=== PATIENT | male | born 1950 | race Caucasian/White ===

== ENCOUNTER → 2017-04-21 | Outpatient (CLI) | payer BC ==
[~2017-04-21] MED LIST: AMLO-110 PO; ATEN-173 PO; BENA1TAB53 PO; DOXY50CA26 PO; HYDR12.55 PO; MULT-618 PO
[2017-04-21 12:57] LABS: BASO % 0.6 %; BASO ABS # 0.03 K/uL (0-0.2); COMPLETE YES; EOS % 2.1 %; HEMATOCRIT 44.8 % (42-52); IG% 0.2 %; LYMPH % 29.4 %; MEAN CELL VOLUME 89.4 fL (80-100); MEAN CORPUSCULAR HEMOGLOBIN 31.9 pg (25-34); MEAN CORPUSCULAR HGB CONC 35.7 g/dl (32-36); MEAN PLATELET VOLUME 10.3 fL (7.4-10.4); MONO % 13.2 %; NEUT % 54.5 %; PLATELET COUNT 213 K/uL (130-400); RED BLOOD COUNT 5.01 M/uL (4.7-6.1); WHITE BLOOD COUNT 4.77 K/uL (4.8-10.8)
[2017-04-21 13:34] LABS: ALKALINE PHOSPHATASE 82 U/L (45-117); ALT/SGPT 60 U/L (12-78); BLOOD UREA NITROGEN 13 mg/dl (7-18); BUN/CREATININE RATIO 13.9 (10-20); CALCIUM 9.3 mg/dl (8.5-10.1); CARBON DIOXIDE 29 mmol/L (21-32); CHLORIDE 105 mmol/L (98-107); CHOLESTEROL 197 mg/dl (0-200); CHOLESTEROL/HDL RATIO 4.7; CREATININE 0.94 mg/dl (0.60-1.40); GLUCOSE 122 mg/dl (70-99); HDL CHOLESTEROL 42 mg/dl; LDL CHOLESTEROL CALCULATED 119 mg/dl; POTASSIUM 3.6 mmol/L (3.5-5.1); SODIUM 140 mmol/L (136-145); TRIGLYCERIDES 179 mg/dl (0-150); VERY LOW DENSITY LIPOPROT CALC 36 mg/dl
[2017-04-21 13:38] LABS: ALB/GLOB RATIO 1.1 (0.9-2); AST/SGOT 32 U/L (15-37); FERRITIN 142.2 ng/ml (8.0-388.0); PROSTATE SPECIFIC ANTIGEN 0.822 ng/ml (0.000-4.000); TOTAL IRON BINDING CAPACITY 333 mcg/dl (250-450)
== END | disposition home or self-care (01) ==
LOC: C.LABMFLN 08:46
PROVIDERS: ATTEND Family Medicine
DX: I10 Essential (primary) hypertension (principal); E78.5 Hyperlipidemia, unspecified; Z12.5 Encounter for screening for malignant neoplasm of prostate; E83.119 Hemochromatosis, unspecified

== ENCOUNTER 2019-12-16 08:25 | Inpatient (IN) ==
--- NOTE | 2019-11-15 15:02 | PAT Medication Instructions ---
Medication Instructions Date of Service November 15, 2019 Home Medications Medication Instructions Recorded aspirin 81 mg tablet,delayed 81 mg PO DAILY #90 tab 10/26/18 release atenolol 25 mg tablet 25 mg PO DAILY #90 tab 01/31/19 hydrochlorothiazide 12.5 mg capsule 12.5 mg PO DAILY #90 cap 03/03/19 amlodipine 10 mg tablet 10 mg PO DAILY #90 tab 05/02/19 doxycycline hyclate 50 mg capsule 50 mg PO DAILY #90 cap 05/24/19 diclofenac sodium 75 mg 75 mg PO BID #60 tab 06/15/19 tablet,delayed release benazepril 40 mg tablet 40 mg PO DAILY #90 tab 09/13/19 aspirin 81 mg tablet,delayed release 81 mg PO DAILY atenolol 25 mg tablet 25 mg PO DAILY multivitamin 1 tab PO DAILY hydrochlorothiazide 12.5 mg capsule 12.5 mg PO DAILY amlodipine 10 mg tablet 10 mg PO DAILY doxycycline hyclate 50 mg capsule 50 mg PO DAILY diclofenac sodium 75 mg tablet,delayed release 75 mg PO BID benazepril 40 mg tablet 40 mg PO DAILY ASK your surgeon for instructions diclofenac sodium 75 mg tablet,delayed release 75 mg PO BID DO NOT take the morning of surgery multivitamin 1 tab PO DAILY hydrochlorothiazide 12.5 mg capsule 12.5 mg PO DAILY benazepril 40 mg tablet 40 mg PO DAILY Take morning of surgery With a small sip of water, OTHERWISE NOTHING TO EAT OR DRINK AFTER MIDNIGHT: aspirin 81 mg tablet,delayed release 81 mg PO DAILY atenolol 25 mg tablet 25 mg PO DAILY amlodipine 10 mg tablet 10 mg PO DAILY doxycycline hyclate 50 mg capsule 50 mg PO DAILY Other Notes If you have any questions please call us at [phone] or [phone] or [phone] or [phone]
--- NOTE | 2019-11-16 13:23 | Anesthesiology Consultation ---
Date of Service November 16, 2019 Assessment & Plan (1) Encounter for pre-operative examination: Chart Review Chart Review: Acceptable Risk for Surgery (pending covid testing ) and Patient seen in Pre Admission Testing Due to thoracic aortic aneurysm- fluid bolus not ordered- will leave to anesthesia discretion DOS. Per PAT appt 11/16/19, pt resides in [facility]. Did travel to [facility] 11/13/19. Wears mask in public and practices social distancing. Educated patient to follow up with surgeon's office regarding Covid testing. Educated on importance of self quarantining, social distancing and wearing mask in public both for herself and household contacts. Teaching & Discussion Pre-Anesthesia Teaching/Discussion Notes: Instructed NPO after midnight before surgery,except medications with 15 cc of water. Medication instructions provided according to the PAT guidelines. History Surgery Operation Date: 12/16/19 09:15 Proposed Procedures p Left Anterior Total Hip Arthroplasty - Miguel Castillo DO Height/Weight Height: 5 ft 9 in Weight: 88.3 kg Allergies Allergy/AdvReac Type Severity Reaction Status Date / Time No Known Drug Allergies Allergy Unknown . Verified 11/14/19 08:07 Medications Home Medications Medication Instructions Recorded Confirmed Last Taken aspirin 81 mg tablet,delayed 81 mg PO DAILY #90 tab 10/26/18 11/14/19 Unknown release atenolol 25 mg tablet 25 mg PO DAILY #90 tab 01/31/19 11/14/19 Unknown multivitamin 1 tab PO DAILY 02/25/19 11/14/19 Unknown hydrochlorothiazide 12.5 mg capsule 12.5 mg PO DAILY #90 cap 03/03/19 11/14/19 Unknown amlodipine 10 mg tablet 10 mg PO DAILY #90 tab 05/02/19 11/14/19 Unknown doxycycline hyclate 50 mg capsule 50 mg PO DAILY #90 cap 05/24/19 11/14/19 Unknown diclofenac sodium 75 mg 75 mg PO BID #60 tab 06/15/19 11/14/19 Unknown tablet,delayed release benazepril 40 mg tablet 40 mg PO DAILY #90 tab 09/13/19 11/14/19 Unknown Past Medical History Medical History (Updated 11/17/19 @ 10:39 by Blessing Hutchinson PA-C) Aneurysm of thoracic aorta Follows with [facility] [place]. Dx'd ~2010. Per 11/09/18 CT note- ascending aorta at level of bifurcation of pulmonary artery at 41.7mm which is essentially without change dating back to 2010. Has f/u in 2020 Benign essential hypertension Gilbert's syndrome Pt unaware of this dx- denies any liver issues or hx of jaundice. Bilirubin elevated since at least 2017- stable Hemochromatosis Stable and controlled. No phlebotomies needed- donates blood routinely. Hyperlipidemia Osteoarthritis of hips, bilateral Rosacea Exercise / Class Metabolic Activity II 4-5 Yardwork/Stairs/Walk up hill (one flight of stairs - no chest pain or SOB ) Past Family History Family History Father Abdominal aortic aneurysm Hypertension Mother Heart disease Hypertension Grandmother (Maternal) Coronary heart disease Past Surgical History Surgical History History of esophagogastroduodenoscopy (EGD) S/P carpal tunnel release left S/P colonoscopy S/P decompression of ulnar nerve left S/P exploratory laparotomy r/t adhesions (Mar) S/P inguinal hernia repair right S/P laparotomy perforated gastric ulcer (May) Past Anesthesia History No Hx of Anesthesia Complications and No Family Hx of Anesthesia Complications History of PONV No Hx of PONV and No Hx of Motion Sickness Social History Smoking Status: Never smoker Do You Dip or Chew Tobacco: No Hx Alcohol Use: Yes Alcohol type: wine alcohol intake frequency: a few times a month Hx Substance Use: No substance use type: does not use Review of Systems Occ snoring- no witness apnea. No hx of sleep study Patient denies chest pain, shortness of breath, dyspnea on exertion, reflux, cough, wheezing, palpitations. No hx of seizures, stroke, [place].. No hx of blood clots or blood transfusions Physical Exam Vital Signs VITALS BP 133/76 P 58 TEMP 98.2 SP02 95% RESP 16 Constitutional no acute distress ENMT Mouth: no TMJ clicking Thyromental Distance: > or= 3.5 Finger Breadths (3.5) Mallampati Class: III Denies missing teeth Neck neck extension not limited Respiratory normal respiratory effort; no respiratory distress Auscultation: lungs clear to auscultation bilaterally; no wheezes Cardiovascular Rate/Rhythm: regular rate and regular rhythm Heart Sounds: no murmur Vessels: no carotid bruit Heart sounds diminished throughout Musculoskeletal Spine: no pain with cervical ROM Neurologic moves all extremities Psychiatric Orientation: alert Testing Laboratory Results 11/16/19 13:35 11/16/19 13:35 PT 10.7 Seconds (9.0-12.0) 11/16/19 13:35 INR 1.0 (0.9-1.1) 11/16/19 13:35 APTT 28.6 Seconds (21.0-31.0) 11/16/19 13:35 Blood Type O Positive 11/16/19 13:35 Antibody Screen NEGATIVE 11/16/19 13:35 02/28/19= AST= 31 ALT= 57 ALK PHOS= 83 Electrocardiogram Date: 11/16/19 SB with 1st degree AVB at 57 bpm. Chest X-Ray Date: 11/16/19 Findings: + NAD and + cardiomegaly (mild) Calcified granulomas noted in the left midlung. Minimal atelectasis is seen at the lung bases.
--- NOTE | 2019-11-16 14:02 | XRay Report ---
TWO VIEW CHEST CLINICAL HISTORY: Preoperative examination. FINDINGS: PA and lateral chest radiographs are obtained. No prior studies are available for compariso n at the time of dictation. The heart is mildly enlarged noting atherosclerotic calcification of the thoracic aorta. The pulmonary vasculature is noncongested. Calcified granulomas noted in the left mi dlung. Minimal atelectasis is seen at the lung bases. There is no airspace consolidation or pleural e ffusion. There is no pneumothorax. The bony thorax appears intact. IMPRESSION: Mild cardiac enlargement with no active disease in the chest. ACT 112: Negative or not required by law. Electronically signed by: Enrique Escobedo M.D. 11/16/2019 2:01 PM
--- NOTE | 2019-11-16 14:54 | Electrocardiogram Report ---
Test Reason : Blood Pressure : / mmHG Vent. Rate : 057 BPM Atrial Rate : 057 BPM P-R Int : 256 ms QRS Dur : 104 ms QT Int : 428 ms P-R-T Axes : 013 074 065 degrees QTc Int : 416 ms Sinus bradycardia with 1st degree A-V block Otherwise normal ECG No previous ECGs available Confirmed by Guicho Vaughan ([id number]) on 11/16/2019 2:54:28 PM Referred By: Miguel Castillo Confirmed By:Guicho Vaughan
[2019-11-16 16:36] LABS: Basophils # (auto) 0.02 K/uL (0-0.2); Basophils % (auto) 0.4 %; Eosinophils # (auto) 0.04 K/uL (0-0.5); Eosinophils % (auto) 0.9 %; Hemoglobin 14.9 g/dL (14.0-18.0); Immature Granulocytes # (auto) 0.01 K/uL (0.00-0.02); Immature Granulocytes % (auto) 0.2 %; Lymphocytes # (auto) 1.66 K/uL (1.2-3.4); Lymphocytes % (auto) 35.5 %; Mean Corpuscular Hemoglobin 31.8 pg (25-34); Mean Corpuscular Hgb Conc 35.5 g/dL (32-36); Mean Corpuscular Volume 89.7 fL (80-100); Mean Platelet Volume 10.7 fL (7.4-10.4); Monocytes # (auto) 0.62 K/uL (0.11-0.59); Monocytes % (auto) 13.2 %; Neutrophils # (auto) 2.33 K/uL (1.4-6.5); Neutrophils % (auto) 49.8 %; Platelet Count 227 K/uL (130-400); RDW Coefficient of Variation 13.7 % (11.5-14.5); RDW Standard Deviation 44.9 fL (36.4-46.3); Red Blood Count 4.68 M/uL (4.7-6.1); White Blood Count 4.68 K/uL (4.8-10.8)
[2019-11-16 16:46] LABS: BUN Creatinine Ratio 24.3 (10-20); Calcium 9.4 mg/dl (8.5-10.1); Est GFR (African American) 105.5; Potassium 3.8 mmol/L (3.5-5.1)
[2019-11-16 16:52] LABS: Partial Thromboplastin Time 28.6 Seconds (21.0-31.0); Prothrombin Time 10.7 Seconds (9.0-12.0)
--- NOTE | 2019-12-15 08:19 | History & Physical Report ---
Date of Service December 15, 2019 Assessment & Plan (1) Osteoarthritis of left hip: We will proceed with a left anterior total hip arthroplasty. Postoperatively he will be started on aspirin for DVT prophylaxis and kept overnight in the hospital for postoperative medical management. He plans to talk to case management about home health before discharge. Rosemarie is a low risk for joint placement surgery without any major comorbidities. Present on Admission?: Yes History of Present Illness Chief Complaint: Primary osteoarthritis of the left hip Primary Care Provider: Ira Elam MD Rosemarie is a pleasant 69-year-old male who presented to my office with complaints of chronic increasing left hip and groin pain. X-rays and clinical examination were diagnostic for advanced osteoarthritis of the left hip. After failing extensive conservative treatment, he has elected proceed with a left anterior total hip arthroplasty. Allergies Allergy/AdvReac Type Severity Reaction Status Date / Time No Known Drug Allergies Allergy Unknown . Verified 11/14/19 08:07 Home Medications Home Medications Medication Instructions Recorded Confirmed Type aspirin 81 mg tablet,delayed 81 mg PO DAILY #90 tab 10/26/18 11/14/19 Rx release atenolol 25 mg tablet 25 mg PO DAILY #90 tab 01/31/19 11/14/19 Rx multivitamin 1 tab PO DAILY 02/25/19 11/14/19 History hydrochlorothiazide 12.5 mg capsule 12.5 mg PO DAILY #90 cap 03/03/19 11/14/19 Rx amlodipine 10 mg tablet 10 mg PO DAILY #90 tab 05/02/19 11/14/19 Rx doxycycline hyclate 50 mg capsule 50 mg PO DAILY #90 cap 05/24/19 11/14/19 Rx diclofenac sodium 75 mg 75 mg PO BID #60 tab 06/15/19 11/14/19 Rx tablet,delayed release benazepril 40 mg tablet 40 mg PO DAILY #90 tab 09/13/19 11/14/19 Rx Past Med/Surg History Medical History Aneurysm of thoracic aorta Follows with [facility] [place]. Dx'd ~2010. Per 11/09/18 CT note- ascending aorta at level of bifurcation of pulmonary artery at 41.7mm which is essentially without change dating back to 2010. Has f/u in 2020 Benign essential hypertension Gilbert's syndrome Pt unaware of this dx- denies any liver issues or hx of jaundice. Bilirubin elevated since at least 2017- stable Hemochromatosis Stable and controlled. No phlebotomies needed- donates blood routinely. Hyperlipidemia Osteoarthritis of hips, bilateral Rosacea Surgical History History of esophagogastroduodenoscopy (EGD) S/P carpal tunnel release left S/P colonoscopy S/P decompression of ulnar nerve left S/P exploratory laparotomy r/t adhesions (Mar) S/P inguinal hernia repair right S/P laparotomy perforated gastric ulcer (May) Family History Father Abdominal aortic aneurysm Hypertension Mother Heart disease Hypertension Grandmother (Maternal) Coronary heart disease Social History Smoking Status: Never smoker Second Hand Exposure: No; Hx Alcohol Use: Yes Alcohol type: wine Hx Substance Use: No Preferred Language: Malay Communication Ability: Effective Visual Impairment: No Limitations Hearing Ability: Normal Lubricating Machine Tender Required: No Beliefs That Will Affect Care: None marital status: Current Living Situation: Spouse and Family Current Living Situation Comment: , 2 teen age grandchildren current occupational status: employed Feels Safe at Home: Yes Childhood Exposure to Second-Hand Smoke: No Dental Care, Regularly: Yes Physical Activity Frequency: 3-4 Times per Week Seatbelt Use: always Sunscreen Use: Yes Review of Systems Review of Systems: All systems reviewed & are unremarkable except as noted in HPI & below Physical Exam Constitutional: WD/WN, vitals as above Eyes: PERRL, conjunctivae normal, anicteric sclerae ENMT: external ear and nose normal, oropharynx normal Neck: trachea midline, no thyromegaly Respiratory: normal respiratory effort Cardiovascular: RRR, no murmur, no edema Gastrointestinal (Abdomen): normal bowel sounds, soft, nontender, no hepatosplenomegaly Musculoskeletal: Physical examination of the left hip reveals decreased range of motion with flexion, internal and external rotation. There is significant groin pain with forced internal rotation of the hip his leg lengths are essentially equal. Psychiatric: A+Ox3, euthymic affect Results & Data Results & Data ([facility]) Diagnostic Findings Radiographs of the left hip and pelvis demonstrate advanced osteoarthritis with joint space narrowing osteophyte formation and [id number] articulation. PG Care Time/CCT Total # of Minutes Spent Total Time Spent with Patient: Total time spent is greater than 50% in coordination of care (as documented) at patient's floor/unit and/or counseling patient: Coding Level of Care Code 48128 Initial Inpt Care Lvl 3 Diagnoses Osteoarthritis of left hip M16.12
--- NOTE | 2019-12-16 08:19 | History & Physical Bridge Note ---
Date of Service December 16, 2019 History & Physical Bridge Note I have examined the patient, reviewed the History & Physical and in the interval since the performance of the History & Physical I have noted the following changes of clinical significance: no changes noted
[~2019-12-16 08:25] MED LIST changes: +ACETAMINOPHEN 500 MG TAB PO SCH; -AMLO-110 PO; -ATEN-173 PO; -BENA1TAB53 PO; +BUPIVACAINE 0.5 % 5 MG/1 ML PF 10ML VIAL INFIL ONE; +CEFAZOLIN 2000MG 2,000 MG/15 ML SYR IV SCH; -DOXY50CA26 PO; +FAMOTIDINE 20 MG TAB PO SCH; +GABAPENTIN 300 MG CAP PO SCH; -HYDR12.55 PO; +LR 15ML/HR IV SCH; +LR 60ML/HR IV SCH; +MIDAZOLAM HCL 1 MG/ML 2ML VIAL IV ONE; -MULT-618 PO; +PROPOFOL IV EMULSION 10 MG/ML 20 ML VIAL IV ONE; +ROPIVACAINE 0.5% HCL/PF 150 MG, BUPIVACAINE 0.5% MPF 30 ML, EPINEPHrine 30MG/30ML (OR U... INSTIL SCH; +TRANEXAMIC ACID 1,000 MG **IV Intra-op IV SCH; +TRANEXAMIC ACID 1,000 MG **IV Pre-op IV SCH; +dexAMETHasone 4 MG TAB PO SCH; +fentaNYL citrate 100 MCG/2 ML VIAL IV ONE
[2019-12-16] MEDS ORDERED: ORTHO JOINT ANESTHETIC ONE (09:45)
--- NOTE | 2019-12-16 11:53 | Operative Report ---
PG Post Operative Report Pre & Post Diagnosis Operation Date: 12/16/19 10:20 Pre-Op Diagnosis: Left Hip Degenerative Joint Disease Post-Op Diagnosis: Left Hip Degenerative Joint Disease I identified the patient and participated in the time-out.: Yes Procedure Operation Date: 12/16/19 10:20 Actual Procedures p Left Anterior Total Hip Arthroplasty(Left) - Miguel Castillo DO Surgeon Miguel Castillo DO Hydroelectric Plant Operator Miguel Kamara PAC Estimated Blood Loss 300 Findings Consistent with Post-Op Diagnosis Specimens Left femoral head Complications none Disposition Disposition: Recovery Room Indications Rosemarie is a pleasant 69-year-old male who presented my office with complaints of chronic increasing left hip and groin pain. X-rays and clinical examination are diagnostic for advanced osteoarthritis of the left hip. After failing conservative treatment, he elected proceed with a left anterior total hip arthroplasty. Description of Procedure Implants used I used a Biomet Taperloc total hip arthroplasty system with a size 12 high offset micro Taperloc stem, a 52 mm G7 cup with a 25mm screw, an E1 polyethylene liner, a 36 mm ceramic head with a -6 neck. Rosemarie arrived at the hospital for the above procedure. He was seen in the preoperative holding area and the operative extremity was identified and signed. He was given a spinal anesthetic, a preoperative antibiotic, and TXA. He was then taken back to the operating room and laid on the table in the supine position. He was given basic sedation. The operative leg was secured to a Puristst leg positioner. The hip was then prepped and draped in sterile fashion. A timeout was done and the patient and the operative extremity was properly identified. An anterior approach was used. Dissection was taken down through the fascia and the tensor muscle belly was retracted laterally and the rectus was retracted medially. The circumflex vessels were identified and ligated. The capsule was then incised and tagged for later repair. The femoral neck was then cut and the femoral head was removed. The acetabulum was exposed. Time was spent doing a complete circumferential labral release. Sequential reaming of the acetabulum up to a size 51 reamer was done. Final reamings were done under fluoroscopy to ensure appropriate version. A Biomet 52 mm G7 cup was then impacted into place. A single 25 mm screw was placed. The E1 polyethylene liner was then snapped into place. Surrounding soft tissues were then injected with 100 cc of an orthopedic pain control cocktail. The proximal femur was then exposed. Sequential broaching up to a size 12 broach was done. Off that broach a size 36 head with a -6 neck was trialed. The hip was reduced and fluoroscopic images showed anatomic alignment of the implants in acceptable length. The broach was removed. The final size 12 high offset micro Taperloc stem was then impacted into place. A ceramic 36 mm head with a -6 neck was then impacted onto the stem and the hip was reduced. Final fluoroscopic images showed anatomic alignment of the hip. The capsule was then closed with #1 Vicryl suture. A dilute betadyne lavage was then done for 3 minutes. The joint was then irrigated with normal saline solution. The fascia was closed with #1 PDS suture. Skin was closed with 2-0 Vicryl, michael, and a Silverlon dressing. He was then transferred to a hospital bed and taken to the post anesthesia care unit in stable condition. He tolerated the procedure well. Miguel Kamara PA-C, was present for the entire procedure. He was critical for patient positioning, prepping, draping, retraction exposure, wound closure and application of sterile dressing. I attest to the content of the Intraoperative Record and any orders documented therein. Any exceptions are noted below.
--- NOTE | 2019-12-16 12:37 | Anesthesiology Progress Note ---
Date of Service December 16, 2019 Anesthesia Post Procedure Vital Signs Vital Signs: Temp Pulse Pulse Resp BP Pulse Ox 12/16/19 12:25 58 L 16 112/60 98 12/16/19 12:19 36.8 C 54 L 16 107/68 98 12/16/19 09:04 36.6 C 56 L 18 162/84 H 97 Pain Intensity Left Hip: Pain Intensity: 7 Transfer of Care Handoff Completed per policy Notes Mental Status: alert / awake / arousable and participated in evaluation Patient Amnestic to Procedure: Yes Nausea / Vomiting: adequately controlled Pain: adequately controlled Airway Patency, RR, SpO2: stable & adequate BP & HR: stable & adequate Hydration State: stable & adequate Anesthetic Complications: no major complications apparent and Pt Satisfied with anesthetic care
--- NOTE | 2019-12-16 12:42 | Fluoroscopy Report ---
FL hip LT 1V CLINICAL HISTORY: LEFT ANTERIOR HIP COMPARISON STUDY: Left hip radiograph June 15, 2019. FLUOROSCOPY TIME: 26 seconds. FLUOROSCOPIC IMAGES: 2 FINDINGS: Fluoroscopy was provided during total left hip arthroplasty. Hardware is intact. There is a n acetabular screw. There is no fracture or unexpected radiopaque foreign body. IMPRESSION: Fluoroscopy provided during total left hip arthroplasty. ACT 112: Negative or not required by law. Electronically signed by: Leonardo Waddell M.D. 12/16/2019 12:40 PM
[2019-12-16] MEDS ORDERED: ONDANSETRON INJ 2 MG/ML 2 ML VIAL IV PRN ×2 (12:47→12:51)
[2019-12-16] MEDS ORDERED: ATROPINE SULFATE 0.1 MG/ML 10ML SYR IV PRN (12:47)
[2019-12-16] MEDS ORDERED: ePHEDrine sulfate 50 MG/ML AMP IV PRN (12:47)
[2019-12-16] MEDS ORDERED: HYDROmorphone INJ 2 MG/ML SYR/VIAL IV PRN (12:47)
[2019-12-16] MEDS ORDERED: fentaNYL citrate 100 MCG/2 ML VIAL IV PRN (12:47)
--- NOTE | 2019-12-16 12:47 | XRay Report ---
AP PELVIS, CROSSTABLE LATERAL LEFT HIP History: Left total hip arthroplasty. Degenerative arthritis. Postop. FINDINGS: The patient is status post a left total hip arthroplasty. The hardware is intact. No fractu re or dislocation. IMPRESSION: Left total hip arthroplasty. No evidence for hardware complication. ACT 112: Negative or not required by law. Electronically signed by: Delvis Perry M.D. 12/16/2019 12:46 PM
[2019-12-16] MEDS ORDERED: HYDROmorphone INJ 0.5 MG/0.5 ML SYR IV PRN (12:51)
[2019-12-16] MEDS ORDERED: MAGNESIUM HYDROXIDE SUSP 30 ML UDC PO PRN (12:51)
[2019-12-16] MEDS ORDERED: METOCLOPRAMIDE HCL INJ 5 MG/ML 2 ML VIAL IV PRN (12:51)
[2019-12-16] MEDS ORDERED: NALOXONE HCL 0.4 MG/1 ML VIAL/CARP IV PRN (12:51)
[2019-12-16] MEDS ORDERED: bisacodyL 10 MG SUPP PR PRN (12:51)
[2019-12-16] MEDS ORDERED: OXYCODONE HCL IR 5 MG TAB (IMMEDIATE RELEASE) PO PRN (12:51)
[2019-12-16] MEDS: SODIUM CHLORIDE 0.9% 1000ML 1,000 ML IV SCH ×2 (13:57→22:52)
[2019-12-16] MEDS: ACETAMINOPHEN 500 MG TAB PO SCH ×2 (13:57→21:09)
[2019-12-16] MEDS: KETOROLAC TROMETHAMINE 15 MG/ML VIAL IV SCH ×2 (13:58→19:14)
[2019-12-16] MEDS: CEFAZOLIN 2000MG 2,000 MG/15 ML SYR IV SCH (18:11)
[2019-12-16] MEDS ORDERED: SENNA 8.6 MG TAB PO SCH (21:00)
[2019-12-16] MEDS: ASPIRIN 81 MG ECTAB PO SCH (21:08)
[2019-12-16] MEDS: DOCUSATE SODIUM 100 MG CAP PO SCH (21:08)
[2019-12-16] MEDS: ENALAPRIL MALEATE 10 MG TAB PO SCH (21:20)
[2019-12-16] MEDS: hydroCHLOROthiazide 25 MG TAB PO SCH (21:20)
[2019-12-17] MEDS: KETOROLAC TROMETHAMINE 15 MG/ML VIAL IV SCH ×2 (01:48→09:30)
[2019-12-17] MEDS: CEFAZOLIN 2000MG 2,000 MG/15 ML SYR IV SCH (01:48)
[2019-12-17] MEDS: ACETAMINOPHEN 500 MG TAB PO SCH (05:40)
[2019-12-17 05:56] LABS: Hematocrit (blood only) 36.1 % (42-52); Immature Granulocytes # (auto) 0.03 K/uL (0.00-0.02); Immature Granulocytes % (auto) 0.2 %; Lymphocytes # (auto) 0.99 K/uL (1.2-3.4); Mean Corpuscular Hemoglobin 32.1 pg (25-34); Mean Corpuscular Volume 89.1 fL (80-100); Mean Platelet Volume 10.1 fL (7.4-10.4); Monocytes # (auto) 1.43 K/uL (0.11-0.59); Monocytes % (auto) 10.1 %; Neutrophils # (auto) 11.68 K/uL (1.4-6.5); Neutrophils % (auto) 82.7 %; Platelet Count 213 K/uL (130-400); RDW Coefficient of Variation 13.7 % (11.5-14.5); Red Blood Count 4.05 M/uL (4.7-6.1); White Blood Count 14.13 K/uL (4.8-10.8)
[2019-12-17 06:31] LABS: BUN Creatinine Ratio 18.2 (10-20); Calcium 8.4 mg/dl (8.5-10.1); Creatinine Clr Calc Pharmacy 118.3 ml/min; Est GFR (African American) 115.2; Est GFR (Non-African American) 99.4; Potassium 3.6 mmol/L (3.5-5.1)
--- NOTE | 2019-12-17 07:36 | Orthopedic Progress Note ---
Date of Service December 17, 2019 Assessment & Plan (1) Status post left hip replacement: Overall he is doing very well. Is not having much pain in the left hip. He will be seen by physical therapy this morning for ambulation and range of motion exercises. He is on aspirin for DVT prophylaxis. He can be discharged home later today. He will follow-up with orthopedics in 2 weeks. Present on Admission?: Yes Maryann Houston was seen and examined at bedside this morning. Overall is doing very well. Is not having any pain in the left hip. He has been up and ambulating around the hallways. He has no complaints. Physical Exam Musculoskeletal: On physical examination of the left hip, the new Silverlon dressing is clean and dry. It had been changed last night because it was leaking some. His leg lengths are equal. He has active dorsiflexion and plantarflexion of his left ankle. Results & Data ([facility]) Vital Signs (Past 12 Hours) Vital Signs Temp Pulse Resp BP Pulse Ox 12/17/19 04:00 36.6 C 75 18 146/77 H 97 12/16/19 23:19 36.4 C L 69 16 149/76 H 98 12/16/19 21:05 163/81 H 12/16/19 20:35 36.4 C L 73 18 164/78 H 98 Laboratory Results H & H 11/16/19 12/17/19 Range/Units 13:35 05:16 Hgb 14.9 13.0 L (14.0-18.0) g/dL Hct 42.0 36.1 L (42-52) % Coagulation 11/16/19 Range/Units 13:35 INR 1.0 (0.9-1.1) Diagnostic Findings Postoperative x-rays of the left hip show the prosthesis to be in anatomic alig nment without any evidence of fracture, dislocation, or loosening. PG Care Time/CCT Total # of Minutes Spent Total Time Spent with Patient: Total time spent is greater than 50% in coordination of care (as documented) at patient's floor/unit and/or counseling patient: Coding Level of Care Code None Diagnoses Status post left hip replacement Z96.642
--- NOTE | 2019-12-17 07:38 | Discharge Summary ---
Date of Service December 17, 2019 Admission HPI Per Admitting Provider Rosemarie is a pleasant 69-year-old male who presented to my office with complaints of chronic increasing left hip and groin pain. X-rays and clinical examination were diagnostic for advanced osteoarthritis of the left hip. After failing extensive conservative treatment, he has elected proceed with a left anterior total hip arthroplasty. Principal Diagnosis Left hip replacement Discharge Data Allergies Allergy/AdvReac Type Severity Reaction Status Date / Time No Known Drug Allergies Allergy Unknown . Verified 12/16/19 09:16 Consultations 12/17/19 08:00 Consult Case Management - Discharge Planning Routine Procedures Performed Operation Date: 12/16/19 10:20 Actual Procedures p Left Anterior Total Hip Arthroplasty(Left) - Miguel Castillo DO Ordered Studies 12/16/19 10:20 FL fluoroscopy <1hr Routine FL hip LT 1V Routine Hospital Course (1) Status post left hip replacement: On December 16, 2019 Rosemarie arrived at [facility] and underwent a left anterior total hip arthroplasty without complication. He had a spinal anesthetic. Postoperatively he was started on aspirin for DVT prophylaxis and transferred to the general orthopedic floors. His hospital course was unev entful. On postop day #1 his H&H was stable and his pain was well controlled. He was able to participate well with physical therapy doing ambulation and range of motion exercises. He was then discharged home. He will follow-up with orthopedics in 2 weeks. Total Time Total Time Spent Total Time Spent (In Minutes): 20 Discharge Plan Discharge Items Patient Disposition: Home - Home Health Services Reason For Visit: Left Hip Degenerative Joint Disease Discharge Diagnosis: Left hip replacement Activity: As commented below Non-emergency contact: Surgeon Call non-emergency contact if: your wound has increased redness and your wound has increased drainage Follow-up/Referrals: Ira Elam MD [Primary Care Provider] - Diet: Regular Addtl Attending Provider Instructions: Activity and Therapy Recommendations: * If you are using [facility] then therapy will be provided at your home until they feel you have accomplished all of your goals. * If you are using [facility] then Physical Therapy will be provided until they feel you are ready to start Outpatient Physical Therapy. * If you are not using home therapy then Outpatient Physical Therapy should start about 3-5 days from your day of surgery. Therapy will last about 6-10 weeks * You were shown a series of exercises in the hospital. Do these exercises three times each day including the exercises you were shown in physical therapy. * Get up and walk several times each day.~ For the first four weeks, try not to stand or walk for more than one hour at a time. If you do stand or walk for more than one hour, you will not hurt anything, but your leg will likely swell.~~ * As you feel comfortable, you may change from the walker or crutches to a cane and~then to independent walking. Medications: * Narcotic You will likely be sent home from the hospital with a prescription for the narcotic pain medication that worked best throughout your stay. * Aspirin Most patients will be required to take Aspirin 81mg twice a day for 6 weeks after surgery. This is obtained [id number]-itlcasc and a prescription is not necessary. * Other medications may be prescribed for specific circumstances. If you have any questions, please call the office at . * Resume previous home medications unless otherwise instructed TEDs/Elastic Stockings: The white elastic stockings help limit swelling and prevent blood clots from forming in your legs. The more you wear them, the more they work. Wear them for six weeks. Dressing Care: Leave the Silverlon dressing in place for 7 days. After 7 days you may remove the dressing. If the incision is not draining then you may leave the michael open to air. If there is a little bit of drainage or if the michael are getting stuck on your clothing then cover the incision with a dry dressing. The michael will be removed at your 2 week follow-up appointment. Showering: You may shower with the Silverlon dressing in place. Let the shower spray hit the other shoulder. You can pat the dressing dry. If the dressing becomes wet underneath the plastic then simply remove the dressing. Keep the incision dry until you are 7 days out from the day of surgery. At that time you can shower with the michael exposed. Let the soapy shower water run over the michael and pat them dry. Do not scrub or soak the incision. Things To Watch For: * Drainage from the incision site that occurs more than one week after your surgery. * Increased redness at the incision site. * Fever above 102 degrees Fahrenheit. * Unusual chest pain or shortness of breath. * Call [facility] at with any of the above problems Follow-Up Visit: Follow-up with Dr. Castillo's PA (Miguel Kamara) 2-3 weeks after your day of surgery. He will remove your michael and answer any questions. If you have any additional questions or concerns, Dr Castillo is usually in the office at the same time and will be available An appointment was probably scheduled when you signed-up for surgery in the office. If you have any questions call Office Instructions: More detailed instructions as well as Frequently Asked Questions were provided in a folder by our office when you signed-up for surgery. Please review these instructions when you get home. If you have any further questions or concerns, please feel free to call the office at [phone] Pending Studies at Discharge: No Stand-Alone Forms: My [email or web address], Smoking Cessation Medications and DC Order Prescriptions: New oxycodone 5 mg Tablet 5 mg PO Q4H PRN (Reason: pain) Qty: 30 RF: 0 Continued atenolol 25 mg tablet 25 mg PO DAILY Qty: 90 RF: 3 hydrochlorothiazide 12.5 mg capsule 12.5 mg PO DAILY Qty: 90 RF: 3 amlodipine 10 mg tablet 10 mg PO DAILY Qty: 90 RF: 3 doxycycline hyclate 50 mg capsule 50 mg PO DAILY Qty: 90 RF: 3 benazepril 40 mg tablet 40 mg PO DAILY Qty: 90 RF: 3 multivitamin tablet 1 tab PO DAILY RF: 0 diclofenac sodium 75 mg tablet,delayed release (DR/EC) 75 mg PO BID Qty: 60 RF: 2 Changed aspirin 81 mg tablet,delayed release (DR/EC) 81 mg PO BID 42 Days Qty: 90 RF: 3 Discharge Orders: Discharge Order (Routine); Ordered 12/17/19 Ordered By: Miguel Castillo Admission Data Admit Date/Time: 12/16/19 12:20 Attending Provider: Miguel Castillo Admit Provider: Miguel Castillo Primary Care Provider: Ira Elam Coding Level of Care Code D/C Day Management <30 mins Diagnoses Status post left hip replacement Z96.642
[2019-12-17] MEDS ORDERED: dexAMETHasone 4 MG TAB PO SCH (08:00)
[2019-12-17] MEDS: DOCUSATE SODIUM 100 MG CAP PO SCH (08:53)
[2019-12-17] MEDS: ASPIRIN 81 MG ECTAB PO SCH (08:53)
[2019-12-17] MEDS ORDERED: MULTIVITAMIN TAB PO SCH (09:00)
[2019-12-17] MEDS ORDERED: AMLODIPINE BESYLATE 5 MG TAB PO SCH (09:00)
[2019-12-17] MEDS ORDERED: ATENOLOL 25 MG TABLET PO SCH (09:00)
[2019-12-17] MEDS ORDERED: DOXYCYCLINE HYCLATE 50 MG CAP PO SCH (09:00)
[2019-12-17] MEDS: ENALAPRIL MALEATE 10 MG TAB PO SCH (09:30)
[2019-12-17] MEDS: hydroCHLOROthiazide 25 MG TAB PO SCH (09:30)
== END 2019-12-17 12:52 | disposition home health service (06) | DRG 470 ==
LOC: 3E 08:25 → ASU 08:25 → OBSVTOIN 12:20

== ENCOUNTER 2020-10-08 08:10 | Observation (INO) ==
--- NOTE | 2020-09-13 12:33 | PAT Medication Instructions ---
Medication Instructions Date of Service September 13, 2020 Home Medications Medication Instructions Recorded benazepril 40 mg tablet 40 mg PO DAILY #90 tab 09/13/19 atenolol 25 mg tablet 25 mg PO DAILY #90 tab 01/25/20 hydrochlorothiazide 12.5 mg capsule 12.5 mg PO DAILY #90 cap 02/28/20 amlodipine 10 mg tablet 10 mg PO DAILY #90 tab 04/26/20 doxycycline hyclate 50 mg capsule 50 mg PO DAILY #90 cap 05/30/20 multivitamin 1 tab PO QAM benazepril 40 mg tablet 40 mg PO DAILY atenolol 25 mg tablet 25 mg PO DAILY hydrochlorothiazide 12.5 mg capsule 12.5 mg PO DAILY amlodipine 10 mg tablet 10 mg PO DAILY doxycycline hyclate 50 mg capsule 50 mg PO DAILY aspirin 81 mg PO QAM DO NOT take the morning of surgery multivitamin 1 tab PO QAM benazepril 40 mg tablet 40 mg PO DAILY hydrochlorothiazide 12.5 mg capsule 12.5 mg PO DAILY Take morning of surgery With a small sip of water, OTHERWISE NOTHING TO EAT OR DRINK AFTER MIDNIGHT: atenolol 25 mg tablet 25 mg PO DAILY amlodipine 10 mg tablet 10 mg PO DAILY doxycycline hyclate 50 mg capsule 50 mg PO DAILY aspirin 81 mg PO QAM (unless otherwise directed by surgeon or doctor who prescribes this to you) Other Notes If you have any questions please call us at [phone] or [phone] or [phone] or [phone]
--- NOTE | 2020-09-18 14:17 | Anesthesiology Consultation ---
Date of Service September 18, 2020 Assessment & Plan (1) Encounter for pre-operative examination: - COVID screening: Per assessment on 09/18: Travel screen negative, no known COVID-19 positive contacts or current COVID-19 related symptoms. Patient was personally COVID positive 04/12/20 > symptoms at time of fever and fatigue > now resolved. Now fully vaccinated. Surgeon arranging preop COVID testing. Awaiting results. - S/P Left anterior SUSHIL (09/16/19): SAB x1 attempt at [facility] Chart Review Chart Review: Acceptable Risk for Surgery and Patient seen in Pre Admission Testing Teaching & Discussion Pre-Anesthesia Teaching/Discussion Notes: Instructed NPO after midnight before surgery,except medications with 15 cc of water. Medication instructions provided according to the PAT guidelines. History Surgery Operation Date: 10/08/20 11:10 Proposed Procedures p Right Total Hip Arthroplasty Anterior - Miguel Castillo, Height/Weight Height: 5 ft 9 in Weight: 88.5 kg Allergies Allergy/AdvReac Type Severity Reaction Status Date / Time No Known Drug Allergies Allergy Unknown . Verified 09/06/20 14:23 Medications Home Medications Medication Instructions Recorded Confirmed Last Taken multivitamin 1 tab PO QAM 02/25/19 09/06/20 12/15/19 07:30 atenolol 25 mg tablet 25 mg PO DAILY #90 tab 01/25/20 09/06/20 Unknown hydrochlorothiazide 12.5 mg capsule 12.5 mg PO DAILY #90 cap 02/28/20 09/06/20 Unknown amlodipine 10 mg tablet 10 mg PO DAILY #90 tab 04/26/20 09/06/20 Unknown doxycycline hyclate 50 mg capsule 50 mg PO DAILY #90 cap 05/30/20 09/06/20 Unknown aspirin 81 mg PO QAM 09/06/20 09/06/20 Unknown benazepril 40 mg tablet 40 mg PO DAILY #90 tab 09/14/20 Unknown Past Medical History Medical History Aneurysm of thoracic aorta Dx 2010 > Follows with Cardiothoracic Surgery Shari. Ascending aorta at level of bifurcation of pulmonary artery at 41.7mm which is essentially without change dating back to 2010 (per 10/2018 CT), F/U 2 years recommended Benign essential hypertension Gilbert's syndrome Hemochromatosis Stable and controlled with no recent phlebotomies needed, donates blood routinely History of COVID-19 dx 04/12/20, symptoms at time of fever and fatigue > now resolved Hyperlipidemia Osteoarthritis Rosacea Exercise / Class Metabolic Activity II 4-5 Yardwork/Stairs/Walk up hill Past Family History Family History Father Abdominal aortic aneurysm Hypertension Mother Heart disease Hypertension Grandmother (Maternal) Coronary heart disease Other No family history of adverse response to anesthesia Past Surgical History Surgical History History of appendectomy History of cataract surgery Left History of esophagogastroduodenoscopy (EGD) History of total hip arthroplasty Left anterior SUSHIL (09/16/19): SAB x1 attempt at [facility] Hx of vasectomy Retinal tear of both eyes Repaired S/P carpal tunnel release Left S/P colonoscopy S/P decompression of ulnar nerve Left S/P exploratory laparotomy R/t adhesions (1984) S/P inguinal hernia repair Right S/P laparotomy Perforated gastric ulcer (1984) [place] teeth removed Past Anesthesia History No Hx of Anesthesia Complications and No Family Hx of Anesthesia Complications History of PONV No Hx of PONV and No Hx of Motion Sickness Social History Smoking Status: Never smoker Do You Dip or Chew Tobacco: No Hx Alcohol Use: Yes Alcohol type: wine alcohol intake frequency: a few times a month Hx Substance Use: No substance use type: does not use Review of Systems Patient denies chest pain, shortness of breath, dyspnea on exertion, joint pain, reflux, cough, wheezing, palpitations. Physical Exam Vital Signs VITALS BP 166/78 P 68 TEMP 98.1 SP02 97%RA RESP 16 PHYSICAL Full cervical extension range of motion. Full TMJ range of motion. TMD 4 finger breaths Mallampati Score 3 Dentition: missing molars Lungs: clear throughout to auscultation Cardiac: regular rate and rhythm, no murmurs noted Spine: normal Carotid arteries: negative bruit Extremities: no edema Testing Laboratory Results 09/18/20 14:44 09/18/20 14:44 PT 10.2 Seconds (9.0-12.0) 09/18/20 14:44 INR 1.0 (0.9-1.1) 09/18/20 14:44 APTT 26.3 Seconds (21.0-31.0) 09/18/20 14:44 Blood Type O Positive 09/18/20 14:44 Antibody Screen NEGATIVE 09/18/20 14:44 Electrocardiogram Date: 11/16/19 SB with 1st degree AVB at 57 bpm. Chest X-Ray Date: 11/16/19 Findings: + NAD and + cardiomegaly (mild) Calcified granulomas noted in the left midlung. Minimal atelectasis is seen at the lung bases. Stress Test Date: 03/25/18 Type: exercise Exercise echocardiographic examination is normal without resting LV wall motion abnormalities or inducible ischemia. 9.0 METS. 84% MPHR. No significant arrhythmias noted. Occasional PACs with stress. LVEF 50%. Nondilated cardiac chambers. Mild AR. Mild MS. Ascending aortic aneurysm 4.6 cm in diameter. Stress EKG response with no evidence of ischemia.
[2020-09-18 15:27] LABS: Basophils # (auto) 0.02 K/uL (0-0.2); Basophils % (auto) 0.5 %; Eosinophils # (auto) 0.05 K/uL (0-0.5); Eosinophils % (auto) 1.3 %; Hematocrit (blood only) 39.7 % (42-52); Lymphocytes # (auto) 1.69 K/uL (1.2-3.4); Lymphocytes % (auto) 42.5 %; Mean Corpuscular Hemoglobin 31.2 pg (25-34); Mean Corpuscular Hgb Conc 35.3 g/dL (32-36); Mean Corpuscular Volume 88.4 fL (80-100); Monocytes % (auto) 10.1 %; Neutrophils # (auto) 1.82 K/uL (1.4-6.5); Neutrophils % (auto) 45.6 %; Platelet Count 198 K/uL (130-400); RDW Coefficient of Variation 13.3 % (11.5-14.5); RDW Standard Deviation 43.2 fL (36.4-46.3); Red Blood Count 4.49 M/uL (4.7-6.1); White Blood Count 3.98 K/uL (4.8-10.8)
[2020-09-18 15:50] LABS: BUN Creatinine Ratio 16.6 (10-20); Calcium 8.9 mg/dl (8.5-10.1); Creatinine Clr Calc Pharmacy 105.2 ml/min; Est GFR (African American) 109.8; Est GFR (Non-African American) 94.8; Potassium 3.6 mmol/L (3.5-5.1)
[2020-09-18 15:54] LABS: Partial Thromboplastin Time 26.3 Seconds (21.0-31.0); Prothrombin Time 10.2 Seconds (9.0-12.0)
--- NOTE | 2020-10-04 08:32 | History & Physical Report ---
Date of Service October 04, 2020 Assessment & Plan (1) Osteoarthritis of right hip: We will proceed with a right anterior total hip arthroplasty. Postoperatively he will be started on aspirin for DVT prophylaxis and kept overnight in the hospital for postoperative medical management. He plans to use [facility] upon discharge. History of Present Illness Chief Complaint: Osteoarthritis right hip. Primary Care Provider: Ira Elam MD David is a pleasant 70-year-old male who I did a left hip replacement on in November 2019. Is done well with that. Unfortunate has been doing with right hip pain. X-rays and clinical examination have been diagnostic for advanced osteoarthritis of the right hip. 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 After failing extensive conservative treatment, he is elected proceed with a right total hip arthroplasty.. Allergies Allergy/AdvReac Type Severity Reaction Status Date / Time No Known Drug Allergies Allergy Unknown . Verified 09/06/20 14:23 Home Medications Medication Instructions Recorded Confirmed Type multivitamin 1 tab PO QAM 02/25/19 09/25/20 History atenolol 25 mg tablet 25 mg PO DAILY #90 tab 01/25/20 09/25/20 Rx amlodipine 10 mg tablet 10 mg PO DAILY #90 tab 04/26/20 09/25/20 Rx doxycycline hyclate 50 mg capsule 50 mg PO DAILY #90 cap 05/30/20 09/25/20 Rx aspirin 81 mg PO QAM 09/06/20 09/25/20 History benazepril 40 mg tablet 40 mg PO DAILY #90 tab 09/14/20 09/25/20 Rx hydrochlorothiazide 25 mg tablet 25 mg PO DAILY #90 tab 09/25/20 09/25/20 Rx Past Med/Surg History Medical History Aneurysm of thoracic aorta Dx 2010 > Follows with Cardiothoracic Surgery Shari. Ascending aorta at level of bifurcation of pulmonary artery at 41.7mm which is essentially without change dating back to 2010 (per 10/2018 CT), F/U 2 years recommended Benign essential hypertension Gilbert's syndrome Hemochromatosis Stable and controlled with no recent phlebotomies needed, donates blood routinely History of COVID-19 dx 04/12/20 Hyperlipidemia Osteoarthritis Rosacea Surgical History History of appendectomy History of cataract surgery Left History of esophagogastroduodenoscopy (EGD) History of total hip arthroplasty Left anterior SUSHIL (09/16/19) Hx of vasectomy Retinal tear of both eyes Repaired S/P carpal tunnel release Left S/P colonoscopy 09/26/2013 repeat 5yrs S/P decompression of ulnar nerve Left S/P exploratory laparotomy R/t adhesions (1984) S/P inguinal hernia repair Right S/P laparotomy Perforated gastric ulcer (1984) [place] teeth removed Family History Father Abdominal aortic aneurysm Hypertension Mother Heart disease Hypertension Grandmother (Maternal) Coronary heart disease Other No family history of adverse response to anesthesia Social History Smoking Status: Never smoker Second Hand Exposure: No; Hx Alcohol Use: Yes Alcohol type: wine Hx Substance Use: No Preferred Language: Syriac Communication Ability: Effective Visual Impairment: No Limitations Hearing Ability: Normal Registration Representative Required: No Beliefs That Will Affect Care: None marital status: Current Living Situation: Spouse and Family Current Living Situation Comment: , 2 teen age grandchildren current occupational status: employed Feels Safe at Home: Yes Childhood Exposure to Second-Hand Smoke: No Dental Care, Regularly: Yes Physical Activity Frequency: 3-4 Times per Week Seatbelt Use: always Sunscreen Use: Yes Assistive Devices: Glasses Review of Systems All systems reviewed & are unremarkable except as noted in HPI & below. Physical Exam Physical examination of the right hip, his leg lengths are equal. He has decreased range of motion of his hip. He has pain with forced internal or external rotation.. Constitutional WD/WN, vitals as above Eyes PERRL, conjunctivae normal, anicteric sclerae ENMT external ear and nose normal, oropharynx normal Neck trachea midline, no thyromegaly Respiratory normal respiratory effort Cardiovascular RRR, no murmur, no edema Gastrointestinal (Abdomen) normal bowel sounds, soft, nontender, no hepatosplenomegaly Psychiatric A+Ox3, euthymic affect Results & Data Results & Data Laboratory Results . Diagnostic Findings X-rays of the right hip with pelvis do show advanced osteoarthritis with joint space narrowing, osteophyte formation, and hwxo-vo-rcox articulation.. PG Care Time/CCT Total # of Minutes Spent Total Time Spent with Patient: Total time spent is greater than 50% in coordination of care (as documented) at patient's floor/unit and/or counseling patient: Coding Level of Care Code None Diagnoses Osteoarthritis of right hip M16.11
[~2020-10-08 08:10] MED LIST changes: -BUPIVACAINE 0.5 % 5 MG/1 ML PF 10ML VIAL INFIL ONE; +BUPIVACAINE 0.5 % 5 MG/1 ML PF 10ML VIAL ONE; -CEFAZOLIN 2000MG 2,000 MG/15 ML SYR IV SCH; +LACTATED RINGER'S 1,000 ML IV SCH; -LR 15ML/HR IV SCH; +LR 500ML BOLUS, THEN 15ML/HR IV SCH; -LR 60ML/HR IV SCH; -MIDAZOLAM HCL 1 MG/ML 2ML VIAL IV ONE; -PROPOFOL IV EMULSION 10 MG/ML 20 ML VIAL IV ONE; -ROPIVACAINE 0.5% HCL/PF 150 MG, BUPIVACAINE 0.5% MPF 30 ML, EPINEPHrine 30MG/30ML (OR U... INSTIL SCH; +ROPIVACAINE 0.5% HCL/PF 150 MG, BUPIVACAINE 0.75% MPF 20 ML, EPINEPHrine 30MG/30ML (OR ... INFIL SCH; +ceFAZolin 2000MG 2,000 MG/15 ML SYR IV SCH; -fentaNYL citrate 100 MCG/2 ML VIAL IV ONE
--- NOTE | 2020-10-08 08:12 | History & Physical Bridge Note ---
Date of Service October 08, 2020 History & Physical Bridge Note I have examined the patient, reviewed the History & Physical and in the interval since the performance of the History & Physical I have noted the following changes of clinical significance: no changes noted
[2020-10-08] MEDS ORDERED: MIDAZOLAM HCL 1 MG/ML 2ML VIAL ONE ×2 (09:01)
[2020-10-08] MEDS ORDERED: fentaNYL citrate 100 MCG/2 ML VIAL ONE (09:01)
[2020-10-08] MEDS ORDERED: LIDOCAINE HCL 2% 2 ML VIAL/AMP(20MG/ML) INFIL ONE (09:06)
[2020-10-08] MEDS ORDERED: PROPOFOL IV EMULSION 10 MG/ML 20 ML VIAL IV ONE (09:06)
[2020-10-08] MEDS ORDERED: ePHEDrine sulfate 50 MG/ML AMP IV PRN (10:08)
[2020-10-08] MEDS ORDERED: ATROPINE SULFATE 0.1 MG/ML 10ML SYR IV PRN (10:08)
[2020-10-08] MEDS ORDERED: fentaNYL citrate 100 MCG/2 ML VIAL IV PRN (10:08)
[2020-10-08] MEDS ORDERED: ONDANSETRON INJ 2 MG/ML 2 ML VIAL IV PRN ×2 (10:08→12:59)
[2020-10-08] MEDS ORDERED: HYDROmorphone INJ 2 MG/ML SYR/VIAL IV PRN (10:08)
[2020-10-08] MEDS ORDERED: ONDANSETRON INJ 2 MG/ML 2 ML VIAL ONE (10:55)
--- NOTE | 2020-10-08 11:37 | Operative Report ---
PG Post Operative Report Pre & Post Diagnosis Operation Date: 10/08/20 10:40 Pre-Op Diagnosis: Degenerative Joint Disease Right Hip Post-Op Diagnosis: Degenerative Joint Disease Right Hip I identified the patient and participated in the time-out.: Yes Procedure Operation Date: 10/08/20 10:40 Actual Procedures p Right Total Hip Arthroplasty Anterior(Right) - Miguel Castillo DO Surgeon Miguel Castillo DO Recreation Instructor Miguel Kamara PAC Estimated Blood Loss 350 Findings Consistent with Post-Op Diagnosis Specimens Right femoral head Complications none Disposition Disposition: Recovery Room Indications Rosemarie is a pleasant 70-year-old male who is been dealing with chronic increasing right hip and groin pain. X-rays and clinical examination were diagnostic for advanced osteoarthritis of the right hip. He had a left hip replacement done about a year ago. He has done well with that. He has elected proceed with a right anterior total hip arthroplasty. Description of Procedure Implants used I used a Biomet Taperloc total hip arthroplasty system with a size 8 high offset Taperloc stem, a 54 mm G7 cup with a 25mm screw, an E1 polyethylene liner, a 40 mm ceramic head with a -6 neck. Rosemarie arrived at the hospital for the above procedure. He was seen in the preoperative holding area and the operative extremity was identified and signed. He was given a spinal anesthetic, a preoperative antibiotic, and TXA. He was then taken back to the operating room and laid on the table in the supine position. He was given basic sedation. The operative leg was secured to a Puristst leg positioner. The hip was then prepped and draped in sterile fashion. A timeout was done and the patient and the operative extremity was properly identified. An anterior approach was used. Dissection was taken down through the fascia and the tensor muscle belly was retracted laterally and the rectus was retracted medially. The circumflex vessels were identified and ligated. The capsule was then incised and tagged for later repair. The femoral neck was then cut and the femoral head was removed. The acetabulum was exposed. Time was spent doing a complete circumferential labral release. Sequential reaming of the acetabulum up to a size 53 reamer was done. Final reamings were done under fluoroscopy to ensure appropriate version. A Biomet 54 mm G7 cup was then impacted into place. A single 25 mm screw was placed. The E1 polyethylene liner was then snapped into place. Surrounding soft tissues were then injected with 100 cc of an orthopedic pain control cocktail. The proximal femur was then exposed. Sequential broaching up to a size 8 broach was done. Off that broach a size 40 head with a -6 neck was trialed. The hip was reduced and fluoroscopic images showed anatomic alignment of the implants in acceptable length. The broach was removed. The final size 8 high offset Taperloc stem was then impacted into place. A ceramic 40 mm head with a -6 neck was then impacted onto the stem and the hip was reduced. Final fluoroscopic images showed anatomic alignment of the hip. The capsule was then closed with #1 Vicryl suture. A dilute betadyne lavage was then done for 3 minutes. The joint was then irrigated with normal saline solution. The fascia was closed with #1 PDS suture. Skin was closed with 2-0 Vicryl, michael, and a Silverlon dressing. He was then transferred to a hospital bed and taken to the post anesthesia care unit in stable condition. He tolerated the procedure well. Miguel Kamara PA-C, was present for the entire procedure. He was critical for patient positioning, prepping, draping, retraction exposure, wound closure and application of sterile dressing. I attest to the content of the Intraoperative Record and any orders documented therein. Any exceptions are noted below.
--- NOTE | 2020-10-08 12:15 | Fluoroscopy Report ---
FL hip RT 1V CLINICAL HISTORY: RIGHT ANTERIOR SUSHIL COMPARISON STUDY: Pelvis and right hip radiographs August 28, 2020. FLUOROSCOPY TIME: 21 seconds. FLUOROSCOPIC IMAGES: 5. FINDINGS: Fluoroscopy was provided during total right hip arthroplasty. Hardware is intact. There is an acetabular screw. No periprosthetic fracture is identified by fluoroscopy. Left hip arthroplasty i s also noted. IMPRESSION: Fluoroscopy provided during total right hip arthroplasty. ACT 112: Negative or not required by law. Electronically signed by: Leonardo Waddell M.D. 10/08/2020 12:14 PM
--- NOTE | 2020-10-08 12:28 | XRay Report ---
XR hip 1V RT w pelvis CLINICAL HISTORY: Postoperative evaluation. COMPARISON: Pelvis and right hip radiographs August 28, 2020. FINDINGS: Alignment of the total right hip arthroplasty is anatomic. There is an acetabular screw. N o periprosthetic fracture is noted. There are no unexpected radiopaque foreign bodies. There are skin michael. Left hip arthroplasty is noted. IMPRESSION: Expected findings following total right hip arthroplasty. ACT 112: Negative or not required by law. Electronically signed by: Leonardo Waddell M.D. 10/08/2020 12:26 PM
--- NOTE | 2020-10-08 12:34 | Anesthesiology Progress Note ---
Date of Service October 08, 2020 Anesthesia Post Procedure Vital Signs Vital Signs: Temp Pulse Pulse Resp BP BP Pulse Ox 10/08/20 12:20 36.2 C L 55 L 14 111/64 100 10/08/20 12:15 55 L 14 114/62 100 10/08/20 12:05 55 L 14 112/63 98 10/08/20 11:57 36.1 C L 57 L 14 114/57 L 98 10/08/20 08:41 36.5 C 57 L 20 149/80 H 99 Pain Intensity Right Hip: Pain Intensity: 7 Transfer of Care Handoff Completed per policy Notes Mental Status: alert / awake / arousable and participated in evaluation Patient Amnestic to Procedure: Yes Nausea / Vomiting: adequately controlled Pain: adequately controlled Airway Patency, RR, SpO2: stable & adequate BP & HR: stable & adequate Hydration State: stable & adequate Anesthetic Complications: no major complications apparent and Pt Satisfied with anesthetic care
[2020-10-08] MEDS ORDERED: MAGNESIUM HYDROXIDE SUSP 30 ML UDC PO PRN (12:59)
[2020-10-08] MEDS ORDERED: METOCLOPRAMIDE HCL INJ 5 MG/ML 2 ML VIAL IV PRN (12:59)
[2020-10-08] MEDS ORDERED: HYDROmorphone INJ 0.5 MG/0.5 ML SYR IV PRN (12:59)
[2020-10-08] MEDS ORDERED: bisacodyL 10 MG SUPP PR PRN (12:59)
[2020-10-08] MEDS ORDERED: NALOXONE HCL 0.4 MG/1 ML VIAL/CARP IV PRN (12:59)
[2020-10-08] MEDS: SODIUM CHLORIDE 0.9% 1000ML 1,000 ML IV SCH ×2 (13:41→23:28)
[2020-10-08] MEDS: ACETAMINOPHEN 500 MG TAB PO SCH ×2 (14:54→21:10)
[2020-10-08] MEDS: oxyCODONE HCL IR 5 MG TAB (IMMEDIATE RELEASE) PO PRN ×2 (14:58→21:10)
[2020-10-08] MEDS: KETOROLAC TROMETHAMINE 15 MG/ML VIAL IV SCH ×2 (17:26→23:10)
[2020-10-08] MEDS: ceFAZolin 2000MG 2,000 MG/15 ML SYR IV SCH (18:05)
[2020-10-08] MEDS ORDERED: SENNA 8.6 MG TAB PO SCH (21:00)
[2020-10-08] MEDS: DOCUSATE SODIUM 100 MG CAP PO SCH (21:10)
[2020-10-08] MEDS: ASPIRIN 81 MG ECTAB PO SCH (21:10)
[2020-10-09] MEDS: ceFAZolin 2000MG 2,000 MG/15 ML SYR IV SCH (02:27)
[2020-10-09] MEDS: ACETAMINOPHEN 500 MG TAB PO SCH (06:18)
[2020-10-09] MEDS: KETOROLAC TROMETHAMINE 15 MG/ML VIAL IV SCH ×2 (06:18→11:22)
--- NOTE | 2020-10-09 06:55 | Orthopedic Progress Note ---
Date of Service October 09, 2020 Assessment & Plan (1) Status post right hip replacement: Overall he is doing very well. Is not having much pain in the right hip. He is on aspirin for DVT prophylaxis. He will be seen by physical therapy today for ambulation and range of motion exercises. He can be discharged home later today. He will follow-up with orthopedics in 2 weeks. Maryann Valverde was seen and examined at bedside this morning. Overall is doing fairly well. Is not having too much pain in the right hip. He has been up and ambulating to the bathroom. He has no complaints.. Review of Systems All systems reviewed & are unremarkable except as noted in HPI & below. Physical Exam On physical examination the right hip, the dressing is clean and dry. His leg lengths are equal. He has active dorsiflexion plantarflexion of his right ankle.. Results & Data Results & Data Laboratory Results . Diagnostic Findings Postoperative x-rays of the right hip show the prosthesis to be in anatomic alignment without any evidence of fracture, dislocation, or loosening. PG Care Time/CCT Total # of Minutes Spent Total Time Spent with Patient: Total time spent is greater than 50% in coordination of care (as documented) at patient's floor/unit and/or counseling patient: Coding Level of Care Code 76813 Post Operative Follow-Up Diagnoses Status post right hip replacement Z96.641
--- NOTE | 2020-10-09 06:56 | Discharge Summary ---
Date of Service October 09, 2020 Admission HPI (Per Admitting) David is a pleasant 70-year-old male who I did a left hip replacement on in November 2019. Is done well with that. Unfortunate has been doing with right hip pain. X-rays and clinical examination have been diagnostic for advanced osteoarthritis of the right hip. 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 After failing extensive conservative treatment, he is elected proceed with a right total hip arthroplasty.. Admission Exam (Per Admitting) Physical examination of the right hip, his leg lengths are equal. He has decreased range of motion of his hip. He has pain with forced internal or external rotation.. Principal Diagnosis Same as "Discharge Diagnosis" noted below under Discharge Instructions. Discharge Exam On physical examination the right hip, the dressing is clean and dry. His leg lengths are equal. He has active dorsiflexion plantarflexion of his right ankle.. Discharge Data Procedures Performed Operation Date: 10/08/20 10:40 Actual Procedures p Right Total Hip Arthroplasty Anterior(Right) - Miguel Castillo DO Ordered Studies 10/08/20 [place] hip RT 1V Routine Hospital Course (1) Status post right hip replacement: On October 08, 2020 Rosemarie arrived at [facility] and underwent a right hip replacement without complication. He had a spinal anesthetic. Postoperatively he was started on aspirin for DVT prophylaxis and transferred to the general orthopedic floors. His hospital course was uneventful. On postop day #1 his vital signs were stable and his pain was well controlled. He was able to participate well with physical therapy doing ambulation and range of motion exercises. He was then discharged home. He will follow-up with orthopedics in 2 weeks. PG Care Time/CCT Total # of Minutes Spent Total Time Spent with Patient: Total time spent is greater than 50% in coordination of care (as documented) at patient's floor/unit and/or counseling patient: Discharge Plan Discharge Items Patient Disposition: Home - Home Health Services Reason For Visit: Degenerative Joint Disease Right Hip Discharge Diagnosis: Right hip replacement Activity: As commented below Non-emergency contact: Surgeon Call non-emergency contact if: your wound has increased redness and your wound has increased drainage Follow-up/Referrals: Ira Elam MD [Primary Care Provider] - Diet: Regular Addtl Attending Provider Instructions: Activity and Therapy Recommendations: * If you are using [facility] then therapy will be provided at your home until they feel you have accomplished all of your goals. * If you are using [facility] then Physical Therapy will be provided until they feel you are ready to start Outpatient Physical Therapy. * If you are not using home therapy then Outpatient Physical Therapy should start about 3-5 days from your day of surgery. Therapy will last about 6-10 weeks * You were shown a series of exercises in the hospital. Do these exercises three times each day including the exercises you were shown in physical therapy. * Get up and walk several times each day.~ For the first four weeks, try not to stand or walk for more than one hour at a time. If you do stand or walk for more than one hour, you will not hurt anything, but your leg will likely swell.~~ * As you feel comfortable, you may change from the walker or crutches to a cane and~then to independent walking. Medications: * Narcotic You will likely be sent home from the hospital with a prescription for the narcotic pain medication that worked best throughout your stay. * Aspirin Most patients will be required to take Aspirin 81mg twice a day for 6 weeks after surgery. This is obtained [id number] and a prescription is not necessary. * Other medications may be prescribed for specific circumstances. If you have any questions, please call the office at . * Resume previous home medications unless otherwise instructed TEDs/Elastic Stockings: The white elastic stockings help limit swelling and prevent blood clots from forming in your legs. The more you wear them, the more they work. Wear them for six weeks. Dressing Care: Leave the Silverlon dressing in place for 7 days. After 7 days you may remove the dressing. If the incision is not draining then you may leave the michael open to air. If there is a little bit of drainage or if the michael are getting stuck on your clothing then cover the incision with a dry dressing. The michael will be removed at your 2 week follow-up appointment. Showering: You may shower with the Silverlon dressing in place. Do not let the shower spray hit the dressing directly. Pat the Silverlon dressing dry. If the dressing becomes wet underneath, then simply remove the dressing. Keep the incision dry until you are 7 days out from the day of surgery. After 7 days you may remove the Silverlon dressing and shower with the michael exposed. Let soapy water run over the michael and pat them dry. Do not scrub or soak the incision. Things To Watch For: * Drainage from the incision site that occurs more than one week after your surgery. * Increased redness at the incision site. * Fever above 102 degrees Fahrenheit. * Unusual chest pain or shortness of breath. * Call [facility] at with any of the above problems Follow-Up Visit: Follow-up with Dr. Castillo's PA (Miguel Kamara) 2-3 weeks after your day of surgery. He will remove your michael and answer any questions. If you have any additional questions or concerns, Dr Castillo is usually in the office at the same time and will be available An appointment was probably scheduled when you signed-up for surgery in the office. If you have any questions call Office Instructions: More detailed instructions as well as Frequently Asked Questions were provided in a folder by our office when you signed-up for surgery. Please review these instructions when you get home. If you have any further questions or concerns, please feel free to call the office at [phone] Pending Studies at Discharge: No Stand-Alone Forms: My [facility] Medications and DC Order Prescriptions: New oxycodone 5 mg Tablet 5 mg PO Q4H PRN (Reason: pain) Qty: 60 RF: 0 Continued atenolol 25 mg tablet 25 mg PO DAILY Qty: 90 RF: 3 amlodipine 10 mg tablet 10 mg PO DAILY Qty: 90 RF: 3 doxycycline hyclate 50 mg capsule 50 mg PO DAILY Qty: 90 RF: 3 benazepril 40 mg tablet 40 mg PO DAILY Qty: 90 RF: 3 multivitamin tablet 1 tab PO QAM RF: 0 hydrochlorothiazide 25 mg tablet 25 mg PO DAILY Qty: 90 RF: 3 aspirin 81 mg tablet,delayed release (DR/EC) 81 mg PO BID 42 Days Qty: 0 RF: 0 Discharge Orders: Discharge Order (Routine); Ordered 10/09/20 Ordered By: Miguel Castillo Admission Data Admit Date/Time: 10/08/20 12:06 Attending Provider: Miguel Castillo Admit Provider: Miguel Castillo Primary Care Provider: Ira Elam Other Providers: [facility]
[2020-10-09] MEDS: DOCUSATE SODIUM 100 MG CAP PO SCH (07:50)
[2020-10-09] MEDS: ASPIRIN 81 MG ECTAB PO SCH (07:51)
[2020-10-09] MEDS ORDERED: dexAMETHasone 4 MG TAB PO SCH (08:00)
[2020-10-09] MEDS ORDERED: ENALAPRIL MALEATE 10 MG TAB PO SCH (09:00)
[2020-10-09] MEDS ORDERED: amLODIPine BESYLATE 5 MG TAB PO SCH (09:00)
[2020-10-09] MEDS ORDERED: ATENOLOL 25 MG TABLET PO SCH (09:00)
[2020-10-09] MEDS ORDERED: MULTIVITAMIN TAB PO SCH (09:00)
[2020-10-09] MEDS ORDERED: hydroCHLOROthiazide 25 MG TAB PO SCH (09:00)
[2020-10-09] MEDS: oxyCODONE HCL IR 5 MG TAB (IMMEDIATE RELEASE) PO PRN (10:57)
== END 2020-10-09 11:34 | disposition home health service (06) ==
LOC: 3E 08:10 → ASU 08:10